=== PATIENT | male | born 2000 | race Caucasian/White ===

== ENCOUNTER 2020-05-15 12:15 | Emergency (ER) | payer BC, SELFPAY ==
[2020-05-15 12:35] VITALS: BP 148/90; PULSE 94; RESP 20; TEMP 37.1; O2SAT 100; BMI 21.4
--- NOTE | 2020-05-15 13:05 | HMH.EDUTC ---
[facility] [place] Clinical Impression: Exposure to COVID-19 virus Disposition: Home, Self-Care Condition on Discharge: Good Instructions: Preventing the Spread of Coronavirus Discharge Instructions Additional Instructions: isolate until test results known neg Referrals: Dakota Reynolds [Primary Care Provider] - Time of Disposition: 13:09 Medical Decision Making - Ulices Inquiry Pt receiving controlled substance: No Vital Signs: 05/15/20 12:35 Temperature 98.7 F Temperature Source Oral Pulse Rate [Right Brachial] 94 H Respiratory Rate 20 Blood Pressure [Right Arm] 148/90 H Blood Pressure Mean [Right Arm] 109 Blood Pressure Source [Right Arm] Automatic Cuff Blood Pressure Position [Right Arm] Sitting 02 Sat by Pulse Oximetry 100 Oxygen Delivery Method Room Air Orders (Tests/Meds): ORDERS Category Date Time Status Covid-19 Nasal PCR ([facility]) Routine Lab 05/15/20 12:39 [place] [facility] [place] - General Chief complaint: [facility] Stated complaint: covid exposure Time Seen by Provider: 05/15/20 13:06 Mode of Arrival: Ambulatory Source of Information: Patient Limitations: No Limitations Description of Symptoms (Recalled from Triage Doc. by RN): PATIENT REQUESTING COVID TEST D/T EXPOSURE; DENIES SYMPTOMS HEENT Symptoms (Recalled from RN notes): No Resp Symptoms (Recalled from RN notes): No Skin Symptoms (Recalled from RN notes): No MS Symptoms (Recalled from RN notes): No Functional Status (Recalled from RN notes): WNL - History of Present Illness Provider Complaint: 19 yr old male presnets for covid test. had exposer but denies symptoms. - Related Data Home Medications Medication Instructions Recorded Confirmed No Known Home Medications 09/14/19 09/14/19 Allergies Allergy/AdvReac Type Severity Reaction Status Date / Time No Known Allergies Allergy Verified 05/15/20 13:02 - Worker's Comp Is this a Worker's Comp case?: No [facility] History - Hepatitis A Screen Drug use history?: No High risk sexual behaviors?: No History of sexually transmitted infection?: No Currently employed?: No Childcare worker?: No Do you have indoor plumbing?: Yes Do you have electricity?: Yes Attestation statement:: This patient has been screened for Hepatitis A risk factors. I have reviewed the patient's past medical history: Yes Medical History: Denies:: Diabetes Mellitus Type 1, Diabetes Mellitus Type 2, Seizures Other Surgeries: Yes: No Previous Surgery - Social History Smoking Status: Current every day smoker Tobacco Type: e-cigarettes Alcohol Intake: never Substance Use Type: denies use Occupational Status: other Family Hx:: Non-contributory ROS Obtained: Yes Systems reviewed as appropriate & no additional complaints - Constitutional Constitutional: Reports system reviewed and no additional complaints, except as docu - Eyes Eyes: Reports system reviewed and no additional complaints, except as docu - ENT Ears, Nose, Mouth, and Throat: Reports system reviewed and no additional complaints, except as docu - Cardiovascular Cardiovascular: Reports system reviewed and no additional complaints, except as docu - Respiratory Respiratory: Yes system reviewed and no additional complaints, except as docu - Gastrointestinal Gastrointestingal: Reports: system reviewed and no additional complaints, except as docu - Genitourinary Male Genitourinary: Reports system reviewed and no additional complaints, except as docu - Musculoskeletal Musculoskeletal: Reports system reviewed and no additional complaints, except as docu - Integumentary/Breasts Skin/Breast: Reports system reviewed and no additional complaints, except as docu - Neurologic Neurologic: Reports system reviewed and no additional complaints, except as docu - Endocrine Endocrine: Reports system reviewed and no additional complaints, except as docu - Hematologic/Lymphatic Henatologic/Lymphatic: Reports system revie
[2020-05-15 13:14] VITALS: BP 148/90; PULSE 94; RESP 20; TEMP 37.1; O2SAT 100
--- NOTE | 2020-05-15 21:12 | PC.NURSE ---
PATIENT NOTIFIED OF POSITIVE COVID RESULTS
== END 2020-05-15 13:15 | disposition home or self-care (01) ==
PROVIDERS: Emergency Provider Nurse Practitioner Family; PCP Pediatrics
DX: U07.1 COVID-19 (principal); F17.290 Nicotine dependence, other tobacco product, uncomplicated
CPT/HCPCS: 99201; U0003

== ENCOUNTER 2020-10-19 20:59 | Emergency (ER) | payer BC, SELFPAY ==
[2020-10-19 21:03] VITALS: BP 161/95; PULSE 80; RESP 16; TEMP 37.1; O2SAT 97; BMI 21.4
--- NOTE | 2020-10-19 21:17 | HMH.EDEYEP ---
ED Disposition Clinical Impression: Corneal foreign body Qualifiers: Encounter type: initial encounter Laterality: left Qualified Code(s): T15.02XA - Foreign body in cornea, left eye, initial encounter Disposition: Home, Self-Care Condition on Discharge: Good Instructions: DI for Corneal Foreign Body-Eye Additional Instructions: use med and see dr gutierrez in am Referrals: Dakota Reynolds [Primary Care Provider] - - Critical Care Critical Care Time: No Attestation: On 10/19/20, the high probability of a clinically significant, sudden or life threatening deterioration of the following system(s) required my full and direct attention, intervention and personal management. The time I documented below is in addition to time spent performing reported procedures but includes the following listed in this critical care notation. Medical Decision Making - Medical Records Medical records reviewed: Yes: I reviewed the patient's medical records. - Ulices Inquiry Pt receiving controlled substance: No Vital Signs: 10/19/20 21:03 Temperature 98.7 F Temperature Source Oral Pulse Rate [Right] 80 Respiratory Rate 16 Blood Pressure [Right Arm] 161/95 H Blood Pressure Mean [Right Arm] 117 02 Sat by Pulse Oximetry 97 Oxygen Delivery Method Room Air Medical Decision Narrative: no def fb and irrigated eye and call dr gutierrez in am Eye Problem HPI - General Chief complaint: Eye Problems Stated complaint: AO 10/19@0900 piece of wook in L eye Time Seen by Provider: 10/19/20 21:10 Mode of Arrival: Ambulatory Source of Information: Patient, Spouse, Medical Record Limitations: No Limitations Description of Symptoms (Recalled from ER Triage Doc. by RN): pt states was cutting holes in floor and saw dust in his lt eye. pt denies any blurred vision - History of Present Illness HPI Narrative: fb sensation lt eye today - possible saw dust - no loss of vision chief complaint: foreign body Onset (ago): hour(s) Location: left eye Eye Symptoms: foreign body sensation Place: home Mechanism: occurred while hammering/grinding Severity: moderate Associated symptoms: none Treatments Prior to Arrival: none - Related Data Home Medications Medication Instructions Recorded Confirmed No Known Home Medications 09/14/19 09/14/19 Allergies Allergy/AdvReac Type Severity Reaction Status Date / Time No Known Allergies Allergy Verified 05/15/20 13:02 [facility] History - Hepatitis A Screen Drug use history?: No High risk sexual behaviors?: No History of sexually transmitted infection?: No Currently employed?: No Childcare worker?: No Do you have indoor plumbing?: Yes Do you have electricity?: Yes Attestation statement:: This patient has been screened for Hepatitis A risk factors. I have reviewed the patient's past medical history: Yes Medical History: Denies:: Diabetes Mellitus Type 1, Diabetes Mellitus Type 2, Seizures Other Surgeries: Yes: No Previous Surgery - Social History Smoking Status: Current every day smoker Tobacco Type: e-cigarettes Alcohol Intake: never Substance Use Type: denies use Occupational Status: employed Family Hx:: Non-contributory ROS Obtained: Yes All systems reviewed & no additional complaints - Constitutional Constitutional: Denies fever(s) - Eyes Eyes: Reports as per HPI, Denies change in vision, Denies sensitivity to light, Denies photophobia, Reports other (fb sensation ) - ENT Ears, Nose, Mouth, and Throat: Denies sore throat - Cardiovascular Cardiovascular: Denies chest pain - Respiratory Respiratory: Denies shortness of breath - Gastrointestinal Gastrointestingal: Denies: abdominal pain - Genitourinary Male Genitourinary: Denies hematuria - Musculoskeletal Musculoskeletal: Denies joint pain - Integumentary/Breasts Skin/Breast: Denies rash - Neurologic Neurologic: Denies headache(s), Denies seizure-like activity Physical Exam - General General thierry
[2020-10-19 21:30] VITALS: BP 157/88; PULSE 90; RESP 17; O2SAT 100
[2020-10-19 21:40] VITALS: BP 142/71; PULSE 79; RESP 16; TEMP 36.9; O2SAT 99
== END 2020-10-19 21:40 | disposition home or self-care (01) ==
PROVIDERS: Emergency Provider Emergency Medicine; PCP Pediatrics
DX: T15.02XA Foreign body in cornea, left eye, initial encounter (principal); W45.8XXA Other foreign body or object entering through skin, initial encounter; Y92.019 Unspecified place in single-family (private) house as the place of occurrence of the external cause
CPT/HCPCS: 99282

== ENCOUNTER 2022-01-22 21:07 | Day surgery (SDC) | payer BC, SELFPAY ==
[2022-01-22] VITALS (7 sets, daily range): BP systolic 140–161; BP diastolic 62–103; PULSE 63–80; RESP 16–18; TEMP 36.5–37; O2SAT 91–100; BMI 22.8
--- NOTE | 2022-01-22 21:19 | PC.NURSE ---
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
--- NOTE | 2022-01-22 21:21 | PC.NURSE ---
Dr. Garces on phone with Dr. Arrieta at this time
--- NOTE | 2022-01-22 21:23 | HMH.EDSKAF ---
ED Disposition Clinical Impression: Esophageal foreign body Qualifiers: Encounter type: initial encounter Qualified Code(s): T18.108A - Unspecified foreign body in esophagus causing other injury, initial encounter Disposition: Still a Patient Condition on Discharge: Good Instructions: DI for Removal of Foreign Body From Esophagus Referrals: Provider,MD Michelle [Primary Care Provider] - Alan Garces MD [Staff Physician] - - Critical Care Critical Care Time: No Attestation: On 01/22/22, the high probability of a clinically significant, sudden or life threatening deterioration of the following system(s) required my full and direct attention, intervention and personal management. The time I documented below is in addition to time spent performing reported procedures but includes the following listed in this critical care notation. Medical Decision Making - Medical Records Medical records reviewed: Yes: I reviewed the patient's medical records. - Ulices Inquiry Pt receiving controlled substance: No Vital Signs: 01/22/22 21:09 Temperature 98.6 F Temperature Source Oral Pulse Rate [Right] 66 Respiratory Rate 18 Blood Pressure [Right Arm] 161/103 H Blood Pressure Mean [Right Arm] 122 02 Sat by Pulse Oximetry 100 - Lab Data Lab results reviewed: Yes: I reviewed the patient's lab results. Orders (Tests/Meds): ORDERS Category Date Time Status C-Reactive Protein Stat Lab 01/22/22 21:21 Ordered Complete Blood Count Auto Diff Stat Lab 01/22/22 21:21 Ordered Comprehensive Metabolic Panel Stat Lab 01/22/22 21:21 Ordered Erythrocyte Sedimentation Rate Stat Lab 01/22/22 21:21 Ordered Procalcitonin Stat Lab 01/22/22 21:21 Ordered - Physician Consults Physician Consulted: fernanda Reason -: Pt condition Medical Decision Narrative: has esophageal impacted fb and will go to surg at this time Skin/Abscess/FB HPI - General Chief complaint: Skin/Abscess/Foreign Body Stated complaint: AO 01/22@1915@home FB in throat Time Seen by Provider: 01/22/22 21:24 Mode of Arrival: Ambulatory Source of Information: Patient, Parent(s), Medical Record Limitations: No Limitations Description of Symptoms (Recalled from ER Triage Doc. by RN): pt states was eating and now feels like a piece of meat is stuck in throat. pt unable to keep water down. - History of Present Illness HPI narrative: has lodged esophageal fb - had wpisode in 2019 requiring egd MD complaint: foreign body Onset (ago): hour(s) Severity: moderate Associated symptoms: denies other symptoms Treatments prior to arrival: none - Related Data Home Medications Medication Instructions Recorded Confirmed No Known Home Medications 09/14/19 09/14/19 Allergies Allergy/AdvReac Type Severity Reaction Status Date / Time No Known Allergies Allergy Verified 05/15/20 13:02 [facility] History - Hepatitis A Screen Attestation statement:: This patient has been screened for Hepatitis A risk factors. I have reviewed the patient's past medical history: Yes Medical History: Denies:: Diabetes Mellitus Type 1, Diabetes Mellitus Type 2, Seizures Other Surgeries: Yes: No Previous Surgery - Social History Smoking Status: Current every day smoker Tobacco Type: e-cigarettes Alcohol Intake: never Substance Use Type: denies use Occupational Status: employed Family Hx:: Non-contributory ROS Obtained: Yes All systems reviewed & no additional complaints - Constitutional Constitutional: Denies fever(s) - Eyes Eyes: Denies change in vision - ENT Ears, Nose, Mouth, and Throat: Denies sore throat - Cardiovascular Cardiovascular: Denies chest pain - Respiratory Respiratory: Denies shortness of breath - Gastrointestinal Gastrointestingal: Reports: as per HPI. Denies: abdominal pain - Genitourinary Male Genitourinary: Denies hematuria - Musculoskeletal Musculoskeletal: Denies joint pain - Integumentary/Breasts Skin/Br
--- NOTE | 2022-01-22 21:30 | PC.NURSE ---
SURGERY TEAM CALLED IN FOR DR. RIVAS FOR EGD.
--- NOTE | 2022-01-22 21:35 | PC.NURSE ---
SPOKE WITH KAREEM MENDES, AND EFLICIA.
[2022-01-22 21:44] LABS: Basophils # 0.1 K/mm3 (0-0.2); Basophils % 1.1 % (0.1-2.0); Eosinophils # 0.3 K/mm3 (0.0-0.4); Eosinophils % 4.7 % (0.1-12.0); Hematocrit 47.9 % (42.0-52.0); Lymphocytes # 2.6 K/mm3 (0.7-4.5); Lymphocytes % 35.8 % (10-50); Mean Corpuscular HGB Conc 31.4 g/dL (31.8-35.4); Mean Corpuscular Hemoglobin 29.5 pg (27.0-31.2); Mean Corpuscular Volume 94.1 fl (80-94); Mean Platelet Volume 8.2 fl (7.4-10.4); Monocytes # 0.5 K/mm3 (0.1-1.0); Monocytes % 6.3 % (1.7-9.3); Neutrophils # 3.7 K/mm3 (1.8-7.8); Platelet Count 158 K/mm3 (142-424); Red Blood Count 5.09 M/mm3 (4.60-6.20); Red Cell Distribution Width 13.9 % (11.5-17.5); White Blood Count 7.2 K/mm3 (4.8-10.8)
[2022-01-22 21:46] LABS: Coronavirus 19, PCR Not Detected (NotDetected); Influenza A, PCR Not Detected (NotDetected); Influenza B, PCR Not Detected (NotDetected)
[2022-01-22 21:48] LABS: Alanine Aminotransferase 19 U/L (12-78); Albumin Level 4.8 g/dl (3.5-5.0); Albumin/Globulin Ratio 1.9 (1.1-1.8); Alkaline Phosphatase 81 U/L (38-126); Anion Gap 12.2 mEq/L (5-15); Aspartate Amino Transferase 30 U/L (17-59); Bilirubin,Total 1.4 mg/dl (0.2-1.3); Blood Urea Nitrogen 14 mg/dl (9-20); Calcium 9.5 mg/dl (8.4-10.2); Carbon Dioxide 29 mmol/L (22.0-30.0); Chloride 100 mmol/L (98-107); Creatinine Clearance Estimated 105 mL/min (50-200); Estimated Glomerular Filt Rate 84 ml/min (>60); GFR (African American) 101 ML/MIN (>60); Globulin 2.5 g/dL (1.3-3.2); Glucose 101 mg/dl (74-100); Potassium 4.2 mmoL/L (3.5-5.1); Sodium 137 mmol/L (136-145); Total Protein,Serum 7.3 g/dl (6.3-8.2)
--- NOTE | 2022-01-22 21:52 | PC.NURSE ---
Dr. Garces at bedside
[2022-01-22 22:00] LABS: C-Reactive Protein < 0.3 mg/L (0-4)
--- NOTE | 2022-01-22 22:00 | HMH.GSHP ---
HPI HPI: Patient is a 21-year-old male with prior history of esophageal food impaction requiring emergent endoscopy by Dr. Sawyer in September 2019. This evening approximately 7 PM he was eating pork roast and had similar symptoms. It did not pass and he had presented to the emergency department with symptoms of esophageal obstruction presumably secondary to food impaction with inability to swallow his secretions. Surgical consultation was obtained. [facility] History I have reviewed the patient's past medical history: Yes Medical History: Denies:: Diabetes Mellitus Type 1, Diabetes Mellitus Type 2, Seizures *Have you ever received a pneumonia vaccine?: No *Have you received a flu vaccine this season?: No Other Surgeries: Yes: No Previous Surgery - *Social History Smoking Status: Current every day smoker Tobacco Type: e-cigarettes Alcohol Intake: never Substance Use Type: denies use *Occupational Status:: employed *Travel in the last 8 weeks: None Family Hx:: Non-contributory Review of Systems - Review of Systems Review of systems:: pertinent systems reviewed and negative unless documented below - *Neurologic Denies seizure-like activity Meds Home Medications Medication Instructions Recorded Confirmed Type No Known Home Medications 09/14/19 09/14/19 History Allergies Allergy/AdvReac Type Severity Reaction Status Date / Time No Known Allergies Allergy Verified 05/15/20 13:02 Exam Vital signs and Labs for Last 24 Hours: Temp Pulse Resp BP Pulse Ox 98.6 F 66 18 161/103 H 100 01/22/22 21:09 01/22/22 21:09 01/22/22 21:09 01/22/22 21:09 01/22/22 21:09 Laboratory Results - last 24 hr 01/22/22 21:20: Sodium 137, Potassium 4.2, Chloride 100, Carbon Dioxide 29, Anion Gap 12.2, BUN 14, Creatinine 1.10, Estimated Creat Clear 105, Estimated GFR 84, Est GFR ( Amer) 101, Glucose 101 H, Calcium 9.5, Total Bilirubin 1.4 H, AST 30, ALT 19, Alkaline Phosphatase 81, C-Reactive Protein < 0.3, Total Protein 7.3, Albumin 4.8, Globulin 2.5, Albumin/Globulin Ratio 1.9 H I & O for Last 24 hours: Intake & Output 01/20/22 01/21/22 01/22/22 01/23/22 11:59 11:59 11:59 11:59 Weight 155 lb - Constitutional no acute distress - *Routine HEENT Exam Head: Present: normocephalic Eye: Present: EOMI, PERRL ENT: Present: mucous membranes moist - *Routine Neck Exam Present: supple. Absent: lymphadenopathy - *Routine Respiratory Exam Present: CTA bilaterally - *Routine Cardiovascular Exam Present: RRR - *Routine Abdominal Exam Present: soft, normoactive bowel sounds. Absent: tenderness - *Routine Rectal Exam Rectal:: deferred - *Routine Genitalia Exam Genitalia:: deferred - *Routine Extremities Exam Absent: cyanosis, clubbing, edema - *Routine Skin Exam Present: warm. Absent: rash - *Routine Neurological Exam Present: alert, oriented X3 Results - Results Lab Results Last 24 Hours:: Laboratory Results - last 24 hr 01/22/22 21:20: Sodium 137, Potassium 4.2, Chloride 100, Carbon Dioxide 29, Anion Gap 12.2, BUN 14, Creatinine 1.10, Estimated Creat Clear 105, Estimated GFR 84, Est GFR ( Amer) 101, Glucose 101 H, Calcium 9.5, Total Bilirubin 1.4 H, AST 30, ALT 19, Alkaline Phosphatase 81, C-Reactive Protein < 0.3, Total Protein 7.3, Albumin 4.8, Globulin 2.5, Albumin/Globulin Ratio 1.9 H Assessment and Plan - Assessment and plan all Dx Assessment and Plan for all problems:: Plan for emergent EGD
[2022-01-22 22:05] LABS: Procalcitonin 0.079 ng/mL (0.0-2.0)
[2022-01-22 22:26] LABS: Erythrocyte Sedimentation Rate 4 mm/hr (0-15)
--- NOTE | 2022-01-22 22:36 | HMH.SCOPE ---
- Procedure: Date: 01/22/22 Patient Date of :: 2000 Procedure Performed:: Esophagogastroduodenoscopy with retrieval of food impaction for esophageal obstruction Indications:: Patient is a 21-year-old male with prior history of esophageal food impaction requiring emergent endoscopy by Dr. Sawyer in September 2019. This evening approximately 7 PM he was eating pork roast and had similar symptoms. It did not pass and he had presented to the emergency department with symptoms of esophageal obstruction presumably secondary to food impaction with inability to swallow his secretions. Surgical consultation was obtained. Performing Provider:: Alan Garces MD Referring Provider:: Lopez Arrieta Sedation:: MAC sedation Procedure:: Patient was taken to endoscopy procedure room emergently from the emergency department. He was positioned in lateral decubitus position. Adequate intravenous sedation was achieved with anesthesia titration propofol. Olympus endoscope was inserted via the oropharynx. Esophagus was cannulated. There was saliva secretions encountered. This was suctioned free. There was some relatively loose stringy meat products encountered in the distal esophagus at approximately 40 cm. This was grasped with the Garcia net retrieval device. The endoscope with the retrieval device was repeatedly withdrawn and reinserted with removal of food impaction. Once the majority of the food impaction was removed the remainder food bolus which appeared to be moderate sized piece of meat was encountered and this passed into the gastric lumen. Endoscope was then passed into the gastric lumen although there was some luminal narrowing at the gastroesophageal junction which was encountered at approximately 42 cm from the incisors. Within the gastric lumen there was some linear gastropathy. No evidence of any hiatal hernia. Stomach was desufflated and the endoscope was withdrawn. Findings:: Esophageal obstruction secondary to food impaction of the gastroesophageal junction Gastroesophageal junction at approximately 42 cm from the incisors. Luminal narrowing and inflammatory changes at the gastroesophageal junction, unclear if acute versus chronic Some linear gastropathy within the gastric antrum Recommendations:: Recommend clear liquid diet overnight and then full liquid diet followed by soft diet. Recommend [id number] proton pump inhibitors. He is to be seen back in the office and possibly plan for upper GI and repeat EGD. Complications:: None immediately apparent Estimated blood obtained (mL): 1
--- NOTE | 2022-01-22 22:38 | P.PN_ITS ---
[facility] Anesthesia Checklist - Patient Identification Patient Identification: Arm Band - Structural Data Admitted From: Emergency Dept Planned Operative Procedure/s: EGD Consent for Planned Operative Procedure(s) Verified: Yes Verified Documents: Surgical Consent, History and Physical - NPO Status Verified Time NPO: 19:00 - Additional verifications Anesthesia Reactions: No - Airway Assessment C-Spine Mobility Assessed: Yes (mp2) TMJ Mobility Assessed: Yes Dentition: Good Dentition - Neurological Assessment Level of Consciousness: Awake, Alert - Anesthesia Plan Anesthesia Risk discussed: Yes Anesthesia Plan: Verified ASA Class: II (e) Anesthesia Type: MAC [facility] History I have reviewed the patient's past medical history: Yes Medical History: Denies:: Diabetes Mellitus Type 1, Diabetes Mellitus Type 2, Seizures *Have you ever received a pneumonia vaccine?: No *Have you received a flu vaccine this season?: No Anesthesia experience/problems:: nac Other Surgeries: Yes: No Previous Surgery, EGD - *Social History Smoking Status: Current every day smoker Tobacco Type: e-cigarettes Alcohol Intake: never Substance Use Type: denies use *Occupational Status:: employed *Travel in the last 8 weeks: None Family Hx:: Non-contributory
== END 2022-01-22 23:03 | disposition home or self-care (01) ==
LOC: ER 21:28 → SDC 22:21
PROVIDERS: Emergency Provider Emergency Medicine; Visit Provider Surgery
PROC: 0DJ08ZZ Inspection of Upper Intestinal Tract, Via Natural or Artificial Opening Endoscopic (ICD-10-PCS; CPT 43235; principal; 2022-01-22 10:15)
DX: T18.128A Food in esophagus causing other injury, initial encounter (principal)
CPT/HCPCS: 43247; 80053; 84145; 85025; 85651; 86140; C9803; U0003; U0005

== ENCOUNTER 2023-02-04 19:40 | Emergency (ER) | payer BC, SELFPAY ==
[2023-02-04 19:50] VITALS: BP 123/90; PULSE 105; RESP 18; TEMP 36.7; O2SAT 100; BMI 20.2
--- NOTE | 2023-02-04 19:50 | EXP.UTC ---
Discharge Plan Disposition Patient Disposition: Home, Self-Care Condition: Good Prescriptions Prescriptions: New benzonatate [benzonatate] 100 mg capsule 100 mg PO TIDP PRN (Reason: Cough) Qty: 30 0RF oseltamivir [Tamiflu] 75 mg capsule 75 mg PO BID Qty: 10 0RF ondansetron 4 mg Tablet,Disintegrating 4 mg PO Q8H PRN (Reason: Nausea) Qty: 12 0RF Referrals Follow up/Referrals: Provider,Referral, MD [Primary Care Provider] - See instructions Activity Restrictions/Add. Instructions Additional Instructions/Restrictions: Drink plenty of fluids. Take tylenol or ibuprofen for pain or fever. Take the medications as directed. Follow up with your regular doctor. GO TO THE ER FOR ANY WORSENING SYMPTOMS Clinical Impressions Clinical Impression: Influenza A Stand Alone Forms Stand Alone Forms: Work/School Release Instructions Patient Instructions: Influenza, Oseltamivir, Ondansetron Discharge ED Provider: Alvino Rice [facility] General Stated complaint: body ache, vomiting, diarrhea Time Seen by Provider: 02/04/23 19:50 History of Present Illness Provider Complaint: He states that he began to feel bad earlier today. Since then he has ran a fever up to 101, had chills, poor appetite, n/v/d, and body aches. He denies cough, congestion and shortness of breath. Related Data Previous Rx's Medication Instructions Recorded benzonatate 100 mg capsule 100 mg PO TIDP PRN Cough #30 caps 02/04/23 ondansetron 4 mg disintegrating 4 mg PO Q8H PRN Nausea #12 tabs 02/04/23 tablet oseltamivir 75 mg capsule (Tamiflu) 75 mg PO BID #10 caps 02/04/23 Allergies Allergy/AdvReac Type Severity Reaction Status Date / Time No Known Allergies Allergy Verified 05/15/20 13:02 [facility] Disclaimer: The information contained in this section may have been updated after the patient was seen, as this information can be updated by other users. Medical History (Updated 02/04/23 @ 20:11 by Alvino Rice APRN) No significant past medical history Social History Smoking Status: Current every day smoker tobacco type: e-cigarettes second hand exposure: Yes alcohol intake: never substance use type: denies use current occupational status: employed Travel in the last 8 weeks: None current occupational exposures/hazards: No ROS Obtained: Yes All systems reviewed & no additional complaints except as documented Constitutional Constitutional: Reports chills and Reports fever(s) Eyes Eyes: Denies eye discharge ENT Ears, Nose, Mouth, and Throat: Reports as per HPI Cardiovascular Cardiovascular: Denies chest pain Respiratory Respiratory: Denies chest congestion and Reports cough Gastrointestinal Gastrointestingal: Reports nausea; Denies abdominal pain, constipation, cramping, diarrhea or vomiting Musculoskeletal Musculoskeletal: Denies arthralgias Integumentary/Breasts Skin/Breast: Denies rash Neurologic Neurologic: Denies paresthesias Physical Exam General General appearance: alert and in no apparent distress Head Head exam: atraumatic, normocephalic and normal inspection Eye Eye exam: Present normal appearance, PERRL and EOMI ENT ENT exam: Present normal exam, normal oropharynx, mucous membranes moist, TM's normal bilaterally and normal external ear exam Neck Neck exam: Present normal inspection, full ROM and trachea midline; Absent meningismus or lymphadenopathy Chest Chest inspection: Present normal inspection and symmetric chest wall rise; Absent tenderness Respiratory Respiratory exam: Present normal lung sounds bilaterally; Absent respiratory distress Cardiovascular Cardiovascular exam: Present regular rate and normal rhythm; Absent JVD Abdominal Exam Abdominal exam: Present soft and normal bowel sounds; Absent distention, tenderness or guarding Extremities Exam Extremities exam: Present normal inspection, full ROM and normal capillary refill; Absent calf tenderness Back Exam Back
[2023-02-04 20:03] LABS: UTC Influenza A Antigen Positive (Negative); UTC Influenza B Antigen Negative (Negative)
[2023-02-04 20:04] VITALS: BP 123/90; PULSE 105; RESP 18; TEMP 36.7; O2SAT 100
== END 2023-02-04 20:23 | disposition home or self-care (01) ==
PROVIDERS: Emergency Provider Nurse Practitioner Family
DX: J10.1 Influenza due to other identified influenza virus with other respiratory manifestations (principal); R50.9 Fever, unspecified; R11.2 Nausea with vomiting, unspecified; F17.290 Nicotine dependence, other tobacco product, uncomplicated
CPT/HCPCS: 87804; 96372; 99212; 99214; G0463

== ENCOUNTER 2023-11-28 09:44 | Emergency (ER) | payer OTHER, SELFPAY ==
[2023-11-28 09:50] VITALS: BP 138/88; PULSE 66; RESP 20; TEMP 36.6; O2SAT 100; BMI 22.4
--- NOTE | 2023-11-28 09:55 | XR_ITS ---
FINAL REPORT CLINICAL HISTORY: pain FINDINGS: LEFT KNEE 3 views of the left knee were obtained. There is no acute fracture or dislocation. Visualized joint spaces are normally aligned. Soft tissues are unremarkable. IMPRESSION: No acute bony abnormality. Reviewed, Interpreted and Dictated by Juan Pablo Gomez MD Transcribed by Mary Gay Authenticated and [facility]
--- NOTE | 2023-11-28 10:30 | ED_ITS ---
Discharge Plan Disposition Patient Disposition: Still a Patient Condition: Good Referrals Follow up/Referrals: Provider,Referral, [Primary Care Provider] - See instructions Clinical Impressions Clinical Impression: Bursitis of left knee Discharge ED Provider: Alvino Rice [facility] General Stated complaint: Left knee pain and swollen Mode of Arrival: Ambulatory Source of Information: Patient Limitations: No Limitations Time Seen by Provider: 11/28/23 10:42 Description of Symptoms (Recalled from Triage Doc. by RN): PATIENT C/O LEFT KNEE PAIN AND SWELLING THAT STARTED AROUND NOON YESTERDAY. REDNESS, WARMTH, AND SWELLING NOTED TO AREA AND 2 SMALL PIMPLE-LIKE AREAS NOTED HEENT Symptoms (Recalled from RN notes): No Resp Symptoms (Recalled from RN notes): No Skin Symptoms (Recalled from RN notes): Yes MS Symptoms (Recalled from RN notes): Yes Functional Status (Recalled from RN notes): WNL History of Present Illness Provider Complaint: He states that since around 1200 yesterday he has had a red, warm swollen area just below his left knee cap. He denies any known injury. He states that the area is painful and tender touch. He also states that his left knee hurts when he walks on it or bears weight, but he cannot be sure if its the knee hurting or the swollen area below the knee cap. He denies any fever/chills/malaise. He denies any history of similar issues with his knees or other joints. 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 He states that he frequently has to be down on his knees during his work, but he does not think he injured the affected knee. Related Data Allergies Allergy/AdvReac Type Severity Reaction Status Date / Time No Known Allergies Allergy Verified 05/15/20 13:02 Worker's Comp Is this a Worker's Comp case?: No [facility] Disclaimer: The information contained in this section may have been updated after the patient was seen, as this information can be updated by other users. Medical History (Updated 11/28/23 @ 11:08 by Alvino Rice APRN) No significant past medical history Social History Smoking Status: Current every day smoker tobacco type: e-cigarettes second hand exposure: Yes alcohol intake: never substance use type: denies use current occupational status: employed Travel in the last 8 weeks: None current occupational exposures/hazards: No ROS Obtained: Yes All systems reviewed & no additional complaints except as documented Constitutional Constitutional: Denies chills and Denies fever(s) Eyes Eyes: Denies eye discharge ENT Ears, Nose, Mouth, and Throat: Denies dizziness, Denies otalgia and Denies sore throat Cardiovascular Cardiovascular: Denies chest pain Respiratory Respiratory: Denies shortness of breath, Denies chest congestion, Denies cough, Denies stridor and Denies wheezing Gastrointestinal Gastrointestingal: Denies nausea or vomiting Musculoskeletal Musculoskeletal: Reports as per HPI Integumentary/Breasts Skin/Breast: Reports as per HPI and Reports redness Neurologic Neurologic: Denies dizziness and Denies paresthesias Allergic/Immunologic Allergic/Immunologic: Denies wheezing Physical Exam General General appearance: alert and in no apparent distress Head Head exam: atraumatic, normocephalic and normal inspection Eye Eye exam: Present normal appearance, PERRL and EOMI ENT ENT exam: Present normal exam, normal oropharynx, mucous membranes moist, TM's normal bilaterally and normal external ear exam Neck Neck exam: Present normal inspection, full ROM and trachea midline; Absent meningismus or lymphadenopathy Chest Chest inspection: Present normal inspection and symmetric chest wall rise; Absent tenderness Respiratory Respiratory exam: Present normal lung sounds bilaterally; Absent respiratory distress Cardiovascular Cardiovascular exam: Present regular rate and normal rhythm; Absent JVD Abdominal Exam Abdominal exam: Present soft and normal bowel sounds; Absent distention, tenderness or guarding Extremities Exam Extremities exam: Present normal capillary refill; Absent calf tenderness Expanded Lower Extremity Exam Left: Knee exam: Present tenderness, swelling, erythema, knee extension intact and other (redness of area just below patella); Absent abrasion, laceration, ecchymosis, deformity, crepitus, dislocation, effusion, anterior drawer sign, posterior draw sign, pain with valgus, laxity with valgus, pain with varus or laxity with varus Lower leg exam: Present normal inspection, full ROM and Achilles tendon intact; Absent tenderness or Homans' sign Ankle exam: Present normal inspection and full ROM; Absent tenderness Foot/toe exam: Present normal inspection and full ROM; Absent tenderness Gait: observed and normal Back Exam Back exam: Present normal inspection; Absent tenderness Neurological Exam Neurological exam: Present alert and oriented X3 Psychiatric Psychiatric exam: Present normal affect and normal mood Skin Skin exam: Present warm, dry, intact and normal color Lymphatic Lymphatic Findings: no adenopathy Medical Decision Making Medical Records Medical records reviewed: No I reviewed the patient's medical records. [place] Inquiry Pt receiving controlled substance: No Vital Signs: 11/28/23 09:50 Temperature 97.8 F Temperature Source Oral Pulse Rate [Left Brachial] 66 Respiratory Rate 20 Blood Pressure [Left Arm] 138/88 Blood Pressure Mean [Left Arm] 104 Blood Pressure Source [Left Arm] Automatic Cuff Blood Pressure Position [Left Arm] Sitting 02 Sat by Pulse Oximetry 100 Oxygen Delivery Method Room Air Lab Data 11/28/23 10:20 Orders (Tests/Meds): ORDERS Category Date Time Status Knee XR left 3 views [XR knee LT 3V] Stat Exams 11/28/23 09:55 Taken CBC [Complete Blood Count Auto Diff] Stat Lab 11/28/23 10:22 Ordered Medical Decision Narrative: I called and spoke to the PA in orthopedics. He was transferred to the ortho office via wheel chair for further evaluation and treatment.
[2023-11-28 10:37] LABS: Basophils # 0.1 K/mm3 (0-0.2); Basophils % 0.5 % (0.1-2.0); Eosinophils # 0.2 K/mm3 (0.0-0.4); Eosinophils % 1.9 % (0.1-12.0); Hematocrit 45.7 % (42.0-52.0); Hemoglobin 14.7 g/dL (14.1-18.0); Lymphocytes # 1.5 K/mm3 (0.7-4.5); Lymphocytes % 16.2 % (10-50); Mean Corpuscular HGB Conc 32.2 g/dL (31.8-35.4); Mean Corpuscular Hemoglobin 30.8 pg (27.0-31.2); Mean Corpuscular Volume 95.7 fl (80-94); Mean Platelet Volume 8.8 fl (7.4-10.4); Monocytes # 0.5 K/mm3 (0.1-1.0); Monocytes % 5.4 % (1.7-9.3); Neutrophils # 7.1 K/mm3 (1.8-7.8); Platelet Count 156 K/mm3 (142-424); Red Blood Count 4.78 M/mm3 (4.60-6.20); Red Cell Distribution Width 13.9 % (11.5-17.5); White Blood Count 9.3 K/mm3 (4.8-10.8)
--- NOTE | 2023-11-28 10:57 | PC.NURSE ---
Juan Pablo CASTREJON APRN ON PHONE WITH ORTHO PA. PATIENT TO BE SEEN IN ORTHO OFFICE AFTER D/C FROM [facility] TODAY
[2023-11-28 11:01] VITALS: BP 138/88; PULSE 66; RESP 20; TEMP 36.6; O2SAT 100
== END 2023-11-28 11:11 | disposition home or self-care (01) ==
PROVIDERS: Emergency Provider Nurse Practitioner Family
DX: M70.52 Other bursitis of knee, left knee (principal); M25.562 Pain in left knee; F17.290 Nicotine dependence, other tobacco product, uncomplicated
CPT/HCPCS: 73562; 85025; 99212; 99214; G0463